=== PATIENT | female | born 1935 | race Caucasian/White ===

== ENCOUNTER 2016-05-25 17:48 | Emergency (ER) | payer OTHER ==
[2016-05-25 18:10] VITALS: BP 161/74; PULSE 71; RESP 20; TEMP 98.8; O2SAT 95
[2016-05-25] MEDS ORDERED: IPRATROPIUM/ALBUTEROL 3 ML DEYVIAL IH ONE (18:31)
[2016-05-25] MEDS ORDERED: AZITHROMYCIN 250 MG TAB PO ONE (18:39)
--- NOTE | 2016-05-25 18:42 | UCPHY ---
H & P Patient Type: New Chief Complaint Nursing Narrative: Cough started Sunday productive white to clear, last 2hrs states chest tightness and exertional dyspnea. Denies fever. Time Seen by Provider: 05/25/16 18:28 HPI/ROS: CHIEF COMPLAINT: Bronchitis HISTORY OF PRESENT ILLNESS: The patient is a 81-year-old female who comes to the Urgent Care complaining of a dry cough and mild shortness of breath. She states that this is reminiscent of her frequent bouts of bronchitis. She has a history of very mild COPD. She also has a history of an enlarged heart and pulmonary hypertension but has never been diagnosed with CHF. she does not have any swelling in her extremities. She denies chest pain. She also had a left knee replacement 1 month ago. She states that this is doing well and she has been very active. Again she denies any chest pain or pleuritic chest pain. Her saturations are 96% on room air. She is not tachycardic. REVIEW OF SYSTEMS: Constitutional: denies: chills, fever, recent illness, recent injury EENTM: denies: blurred vision, double vision, nose congestion Respiratory: See HPI Cardiac: denies: chest pain, irregular heart rate, lightheadedness, palpitations Gastrointestinal/Abdominal: denies: abdominal pain, diarrhea, nausea, vomiting, blood streaked stools Genitourinary: denies: dysuria, frequency, hematuria, pain Musculoskeletal: denies: joint pain, muscle pain Skin: denies: lesions, rash, jaundice, bruising Neurological: denies: headache, numbness, paresthesia, tingling, dizziness, weakness Hematologic/Lymphatic: denies: blood clots, easy bleeding, easy bruising Immunologic/allergic: denies: HIV/AIDS, transplant EXAM: GENERAL: Well-appearing, well-nourished and in no acute distress. HEAD: Atraumatic, normocephalic. EYES: Pupils equal round and reactive to light, extraocular movements intact, sclera anicteric, conjunctiva are normal. ENT: TMs normal, nares patent, oropharynx clear without exudates. Moist mucous membranes. NECK: Normal range of motion, supple without lymphadenopathy or JVD. LUNGS: Very mild wheezing greater right than left, no crackles or rhonchi. HEART: Regular rate and rhythm without murmurs, rubs or gallops. ABDOMEN: Soft, nontender, normoactive bowel sounds. No guarding, no rebound. No masses appreciated. BACK: No CVA tenderness, no spinal tenderness, step-offs or deformities EXTREMITIES: Normal range of motion, no pitting or edema. No clubbing or cyanosis. No significant edema. Left leg incision healing well. No palpable cords, negative Homans NEUROLOGICAL: Cranial nerves II through XII grossly intact. Normal speech, normal gait. 5/5 strength, normal movement in all extremities, normal sensation PSYCH: Normal mood, normal affect. SKIN: Warm, dry, normal turgor, no visible rashes or lesions. Source: Patient Exam Limitations: No limitations - Medical/Surgical History Hx Chronic Respiratory Disease: Yes Hx Diabetes: No Hx Cardiac Disease: Yes Hx Renal Disease: No Hx Cirrhosis: No Hx Alcoholism: No Hx HIV/AIDS: No Hx Splenectomy or Spleen Trauma: No Other PMH: Med hx-enlarged heart and spondylolisthesis. Surg-hyst,rt hip,left knee - Family History Significant Family History: No pertinent family hx - Social History Smoking Status: Former smoker Alcohol Use: Sober Drug Use: None Constitutional: Initial Vital Signs Temperature (C) 37.1 C 05/25/16 17:57 Heart Rate 71 05/25/16 17:57 Respiratory Rate 20 05/25/16 17:57 Blood Pressure 161/74 H 05/25/16 17:57 O2 Sat (%) 95 05/25/16 17:57 O2 Delivery Mode Room Air Allergies/Adverse Reactions: erythromycin base Allergy (Verified 05/25/16 17:58) Penicillins Allergy (Verified 05/25/16 17:58) Home Medications: Medication Instructions Recorded AZITHROMYCIN [Z-PACK] 250 mg PO DAILY #4 tab 05/25/16 Advair 250/50 (*) 05/25/16 Albuterol Hfa Anes Only 05/25/16 Albuterol [Proventil Inhaler] 1 - 2 puffs IH Q4H #1 mdi 05/25/16 Flonase Allergy Relief 05/25/16 Medical Decision Making - Diagnostics EKG Interpretation: An EKG obtained and was read and documented in trace view. Please see trace view for full reading and report. Sinus rhythm, nonspecific T-wave inversions diffusely, no LVH Imaging: Imaging Impressions Chest X-Ray 05/25/16 18:39 Impression: Predominant abnormality is cardiomegaly. ED Course/Re-evaluation: The patient likely has bronchitis with a background of mild COPD. I will treat her with antibiotics and bronchodilators. We did discuss at length possibility of PE or CHF. Patient would not like to pursue testing for these diagnoses. She feels confident that this is consistent with her multiple episodes of bronchitis. I Did convince her to consent to an EKG and chest x-ray. 7:30 p.m. we discussed the x-ray, EKG results. The patient does have cardiomegaly but no signs of failure on x-ray. No obvious pneumonia. I will start her on azithromycin as she requests. She did feel somewhat better after the albuterol treatment. I will prescribe her an inhaler as well. Oxygen saturation remained stable. I warned her specifically to return to the emergency department if her symptoms are worsening. She understands that we cannot rule out CHF or PE at this time. Differential Diagnosis: Partial list of the Differential diagnosis considered include but were not limited to; bronchitis, pneumonia, COPD exacerbation and although unlikely based on the history and physical exam, I also considered CHF, PE, acute coronary disease, arrhythmia, sepsis. I discussed these differential diagnoses and the plan with the patient as well as the usual and expected course. The patient understands that the diagnosis is provisional and that in medicine we are not always correct and that further workup is often warranted. Usual and customary warnings were given. All of the patient's questions were answered. The patient was instructed to return to the emergency department should the symptoms at all worsen or return, otherwise to followup with the physician as we discussed. - Data Points Medications Given: Discontinued Medications Albuterol/Ipratropium (Duoneb) 3 ml IH EDNOW ONE Stop: 05/25/16 18:32 Last Admin: 05/25/16 18:46 Dose: 3 ml Azithromycin (Zithromax) 500 mg PO EDNOW ONE PRN Reason: Protocol Stop: 05/25/16 18:40 Last Admin: 05/25/16 19:09 Dose: 500 mg Departure - Departure Disposition: Home, Routine, Self-Care Clinical Impression: Bronchitis Condition: Fair Instructions: Acute Bronchitis (ED) Referrals: Kristy Gonzalez MD [Medical Doctor] - As per Instructions Prescriptions: Albuterol [Proventil Inhaler] 1 - 2 puffs IH Q4H #1 mdi AZITHROMYCIN [Z-PACK] 250 mg PO DAILY #4 tab - PQRS PQRS Measurement: 134: Depression screening and followup, PRIME MD-PHQ2 (12 years and older) Over the last 2 weeks, how often have you been bothered by any of the following problems? 1. Feeling down, depressed, or hopeless? 2. Little interest or pleasure in doing things? Patient answered no to both 1 and 2 130: Documentation of medications. Reviewed all patient medications, doses, route and frequency. 226: Do you smoke? No. 47: 65 and older: Advanced care planning. Patient designates surrogate decision maker as spouse . Patient has advanced directive. 51: 18 years old and older with diagnosis of COPD, spirometry performance. Spirometry not performed; equipment not available. 52: 18 years old and older with COPD and symptoms of COPD or FEV1<60% predicted prescribed a B Agonist. Not applicable
--- NOTE | 2016-05-25 19:13 | CPEKG ---
Heart Rate: 71 RR Interval: 845 P-R Interval: 176 QRSD Interval: 96 QT Interval: 432 QTC Interval: 470 P [place]: 35 QRS [place]: 99 T Wave [place]: 5 EKG Severity - ABNORMAL ECG - EKG Impression: SINUS RHYTHM EKG Impression: RIGHT AXIS DEVIATION EKG Impression: NONSPECIFIC T ABNORMALITIES, ANTERIOR LEADS Electronically Signed By: Bolivar Schroeder 25-May-2016 19:23:14
== END 2016-05-25 19:52 | disposition home or self-care (01) ==
LOC: CED 17:48
DX: J20.9 Acute bronchitis, unspecified (principal); I51.7 Cardiomegaly; Z87.891 Personal history of nicotine dependence
CPT/HCPCS: 71020; 93005; G0463